=== PATIENT | female | born 1990 | race Two or more races ===

== ENCOUNTER 2025-08-20 12:15 | Inpatient (IN) | payer OTHER ==
[~2025-08-20] VITALS: Ht 160 cm; Wt 64.9 kg
[2025-08-25 08:55] LABS: COL EPI 146 SECONDS (82-175)
[2025-08-26] MEDS ORDERED: METRONIDAZOLE/SODIUM CHLORIDE 500 MG/100 ML PIGGYBACK IV ONE (07:21)
[2025-08-26] MEDS ORDERED: CEFTRIAXONE SODIUM 2,000 MG VIAL ONE (07:21)
[2025-08-26] MEDS ORDERED: POVIDONE-IODINE 118 ML BOTT TOP ONE (07:38)
[2025-08-26] MEDS ORDERED: BUPIVACAINE HCL/MPF 0.5% 30ML VIAL ONE (07:38)
[2025-08-26] MEDS ORDERED: LIDOCAINE HCL 1%/EPINEPHRINE 20ML VIAL IJ ONE (07:38)
[2025-08-26] MEDS ORDERED: THROMBIN,HU/FIBRINOGEN/CALCIUM 10 ML SYRINGE TOP ONE (07:41)
[2025-08-26] MEDS ORDERED: VISTASEAL DUAL APPICATOR 1 EACH APPL TOP ONE (07:41)
[2025-08-26] MEDS ORDERED: SUGAMMADEX SODIUM 200 MG/2 ML VIAL IV ONE (11:24)
[2025-08-26] MEDS ORDERED: CHLORHEXIDINE GLUCONATE 120 ML BOTTLE TOP ONE (11:24)
[2025-08-26] MEDS ORDERED: ACETAMINOPHEN 325 MG TABLET PO SCH (12:00)
[2025-08-26] MEDS ORDERED: ONDANSETRON HCL 2 MG/ML VIAL IV SCH (12:00)
[2025-08-26] MEDS ORDERED: KETOROLAC TROMETHAMINE 30 MG VIAL IV SCH (12:00)
[2025-08-26] MEDS ORDERED: GABAPENTIN 100 MG CAPSULE PO SCH (13:00)
[2025-08-26] MEDS ORDERED: RINGERS SOLUTION,LACTATED 1,000 ML IV SCH (13:00)
[2025-08-26 15:48] LABS: BASO % 0.1 % (0.1-1.2); EOS # 0.01 (0.04-0.54); EOS % 0.1 % (0.7-7.0); LYMPH # 0.72 (1.18-3.74); LYMPH % 5.2 % (19.3-53.1); MEAN PLATELET VOLUME 9.60 fl (9.4-12.4); MONO # 0.45 (0.24-0.82); MONO % 3.2 % (4.7-12.5); NEUT # 12.70 (1.56-6.13); NEUT % 91.0 % (34.0-71.1); RED CELL DISTRIBUTION WIDTH 13.7 % (11.6-14.4)
[2025-08-26] MEDS ORDERED: KETOROLAC TROMETHAMINE 30 MG VIAL ONE (15:59)
[2025-08-26] MEDS ORDERED: KETOROLAC TROMETHAMINE 30 MG VIAL IV ONE (16:05)
[2025-08-26 16:55] LABS: BUN CREA RATIO 13.0 (7.0-25.0); CREATININE SERUM 0.71 mg/dL (0.55-1.02); GFR 93.68; GLUCOSE FASTING 118.0 mg/dL (65-100); OSMOLALITY SERUM 281.0 MOSM/KG (275-295)
[2025-08-26 18:12] LABS: BASO % 0.2 % (0.1-1.2); EOS # 0.01 (0.04-0.54); EOS % 0.1 % (0.7-7.0); LYMPH # 0.62 (1.18-3.74); LYMPH % 5.3 % (19.3-53.1); MEAN PLATELET VOLUME 9.70 fl (9.4-12.4); MONO # 0.48 (0.24-0.82); MONO % 4.1 % (4.7-12.5); NEUT # 10.61 (1.56-6.13); NEUT % 90.0 % (34.0-71.1); RED CELL DISTRIBUTION WIDTH 13.6 % (11.6-14.4)
[2025-08-26 19:03] VITALS: BP 110/69
[2025-08-27] VITALS: BP 92/58
[2025-08-27 06:43] LABS: BASO % 0.3 % (0.1-1.2); EOS # 0.10 (0.04-0.54); EOS % 1.4 % (0.7-7.0); LYMPH # 1.26 (1.18-3.74); LYMPH % 17.2 % (19.3-53.1); MEAN PLATELET VOLUME 10.00 fl (9.4-12.4); MONO # 0.44 (0.24-0.82); MONO % 6.0 % (4.7-12.5); NEUT # 5.49 (1.56-6.13); NEUT % 75.0 % (34.0-71.1); RED CELL DISTRIBUTION WIDTH 14.0 % (11.6-14.4)
[2025-08-27 07:14] LABS: BUN CREA RATIO 7.0 (7.0-25.0); CREATININE SERUM 0.82 mg/dL (0.55-1.02); GFR 79.33; GLUCOSE FASTING 109.0 mg/dL (65-100); OSMOLALITY SERUM 281.0 MOSM/KG (275-295)
[2025-08-27 09:05] VITALS: BP 101/68
[2025-08-27 16:00] VITALS: BP 100/65
== END 2025-08-27 19:04 | disposition home or self-care (01) | DRG 743 ==
LOC: O/R 08-26 06:00 → OB/GYN 08-26 06:00
PROVIDERS: Student in an Organized Health Care Education/Training Program; ADMIT Obstetrics & Gynecology Gynecology; ATTEND Obstetrics & Gynecology Gynecology
PROC: 0UT54ZZ Resection of Right Fallopian Tube, Percutaneous Endoscopic Approach (ICD-10-PCS; 2025-08-26)
PROC: 0UT14ZZ Resection of Left Ovary, Percutaneous Endoscopic Approach (ICD-10-PCS; 2025-08-26)
PROC: 0UN14ZZ Release Left Ovary, Percutaneous Endoscopic Approach (ICD-10-PCS; 2025-08-26)
PROC: 0DNW4ZZ Release Peritoneum, Percutaneous Endoscopic Approach (ICD-10-PCS; 2025-08-26)
PROC: 0DNJ4ZZ Release Appendix, Percutaneous Endoscopic Approach (ICD-10-PCS; 2025-08-26)
PROC: 0DNN4ZZ Release Sigmoid Colon, Percutaneous Endoscopic Approach (ICD-10-PCS; 2025-08-26)
PROC: 0DNP4ZZ Release Rectum, Percutaneous Endoscopic Approach (ICD-10-PCS; 2025-08-26)
PROC: 0DTJ4ZZ Resection of Appendix, Percutaneous Endoscopic Approach (ICD-10-PCS; 2025-08-26)
PROC: 0T788DZ Dilation of Bilateral Ureters with Intraluminal Device, Via Natural or Artificial Opening Endoscopic (ICD-10-PCS; 2025-08-26)
PROC: 4A1BXSH Monitoring of Gastrointestinal Vascular Perfusion using Indocyanine Green Dye, External Approach (ICD-10-PCS; 2025-08-26)
PROC: 0UT94ZZ Resection of Uterus, Percutaneous Endoscopic Approach (ICD-10-PCS; principal; 2025-08-26 15:00)
DX: D25.1 Intramural leiomyoma of uterus (principal); N80.03 Adenomyosis of the uterus; D27.1 Benign neoplasm of left ovary; N80.549 Endometriosis of the appendix, unspecified depth; N80.353 Endometriosis of bilateral pelvic sidewall, unspecified depth